=== PATIENT | male | born 1985 | race Caucasian/White ===

== ENCOUNTER 2016-06-20 07:32 | Emergency (ER) | payer SELFPAY ==
[2015-04-17 18:52] VITALS: BMI 28.2
[~2016-06-20 07:32] MED LIST: CIPRO500 MG PO; FLAGYL500 MG PO
== END 2016-06-20 08:36 | disposition home or self-care (01) ==
LOC: D.ER 07:32
DX: J06.9 Acute upper respiratory infection, unspecified (principal); F17.200 Nicotine dependence, unspecified, uncomplicated

== ENCOUNTER 2016-07-22 15:27 | Emergency (ER) | payer SELFPAY ==
[2015-04-17 18:52] VITALS: BMI 28.2
[2016-07-22 16:22] LABS: BASOPHILS 0.1 % (0-2); EOSINOPHILS 0.8 % (0-7); HEMATOCRIT 52.4 % (42.0-54.0); HEMOGLOBIN 18.3 g/dL (13.5-17.5); IMMATURE GRANULOCYTES 0.6 % (0-5); LYMPHOCYTES 9.7 % (15-50); MCH 31.5 pg (26.0-34.0); MCHC 34.9 g/dL (31.0-37.0); MCV 90.2 fL (80.0-100.0); MEAN PLATELET VOLUME 11.3 fL (7.4-10.4); MONOCYTES 7.1 % (2-11); NEUTROPHILS 81.7 % (40-80); RBC 5.81 10x6/uL (4.20-6.10); RDW 12.6 % (11.5-14.5); WBC 14.5 10x3/uL (4.8-10.8)
[2016-07-22 16:26] LABS: PLATELET COUNT 275 10x3/uL (130-400)
[2016-07-22 16:44] LABS: ALBUMIN 4.5 g/dL (3.4-5.0); ALKALINE PHOSPHATASE 95 U/L (46-116); ALT (SGPT) 37 U/L (10-68); AMYLASE - SERUM 98 U/L (25-115); BILIRUBIN - TOTAL 1.33 mg/dL (0.2-1.3); CALC OSMOLALITY 274 mosm/kg (275-300); CALCIUM 9.8 mg/dL (8.5-10.1); CARBON DIOXIDE 32.3 mmol/L (21.0-32.0); CHLORIDE - SERUM 100 mmol/L (98-107); CREATININE - SERUM 1.1 mg/dL (0.6-1.3); GLUCOSE 95 mg/dL (74-106); LIPASE 103 U/L (73-393); PROTEIN - SERUM 7.8 g/dL (6.4-8.2); SODIUM 138 mmol/L (136-145); UREA NITROGEN 9 mg/dL (7-18); eGFR NON AFRICAN AMERICAN 82 mL/min (90-120)
== END 2016-07-22 19:31 | disposition home or self-care (01) ==
LOC: D.ER 15:27
PROVIDERS: Emergency Medicine
DX: K52.9 Noninfective gastroenteritis and colitis, unspecified (principal); F17.200 Nicotine dependence, unspecified, uncomplicated; R00.0 Tachycardia, unspecified

== ENCOUNTER 2017-05-06 17:07 | Emergency (ER) | payer SELFPAY ==
[2015-04-17 18:52] VITALS: BMI 28.2
== END 2017-05-06 20:25 | disposition home or self-care (01) ==
LOC: D.ER 17:07
DX: S39.012A Strain of muscle, fascia and tendon of lower back, initial encounter (principal); W19.XXXA Unspecified fall, initial encounter; Y93.89 Activity, other specified; Y92.019 Unspecified place in single-family (private) house as the place of occurrence of the external cause; M54.5 Low back pain; M54.30 Sciatica, unspecified side; F17.200 Nicotine dependence, unspecified, uncomplicated

== ENCOUNTER 2017-06-08 12:49 | Emergency (ER) | payer SELFPAY ==
[2015-04-17 18:52] VITALS: BMI 28.2
== END 2017-06-08 15:33 | disposition home or self-care (01) ==
LOC: D.ER 12:49
DX: J20.9 Acute bronchitis, unspecified (principal); J06.9 Acute upper respiratory infection, unspecified; F17.200 Nicotine dependence, unspecified, uncomplicated

== ENCOUNTER 2017-07-09 13:53 | Emergency (ER) | payer MEDICAID ==
[2015-04-17 18:52] VITALS: BMI 28.2
[2017-07-09 14:40] LABS: BASOPHILS 0.1 % (0-2); EOSINOPHILS 0.2 % (0-7); HEMATOCRIT 51.1 % (42.0-54.0); HEMOGLOBIN 18.1 g/dL (13.5-17.5); IMMATURE GRANULOCYTES 0.6 % (0-5); MCH 31.7 pg (26.0-34.0); MCHC 35.4 g/dL (31.0-37.0); MCV 89.5 fL (80.0-100.0); MEAN PLATELET VOLUME 11.2 fL (7.4-10.4); NEUTROPHILS 85.1 % (40-80); PLATELET COUNT 241 10x3/uL (130-400); RBC 5.71 10x6/uL (4.20-6.10); RDW 12.6 % (11.5-14.5); WBC 16.3 10x3/uL (4.8-10.8)
[2017-07-09 15:02] LABS: ALBUMIN 4.8 g/dL (3.4-5.0); ALKALINE PHOSPHATASE 95 U/L (46-116); ALT (SGPT) 47 U/L (10-68); AMYLASE - SERUM 90 U/L (25-115); CALC OSMOLALITY 283 mosm/kg (275-300); CALCIUM 9.5 mg/dL (8.5-10.1); CARBON DIOXIDE 25.2 mmol/L (21.0-32.0); CHLORIDE - SERUM 106 mmol/L (98-107); CREATININE - SERUM 1.1 mg/dL (0.6-1.3); GLUCOSE 100 mg/dL (74-106); LIPASE 93 U/L (73-393); POTASSIUM - SERUM 3.7 mmol/L (3.5-5.1); PROTEIN - SERUM 8.5 g/dL (6.4-8.2); SODIUM 142 mmol/L (136-145); UREA NITROGEN 14 mg/dL (7-18); eGFR NON AFRICAN AMERICAN 82 mL/min (90-120)
== END 2017-07-09 17:00 | disposition home or self-care (01) ==
LOC: D.ER 13:53
PROVIDERS: Family Medicine
DX: K59.00 Constipation, unspecified (principal); M79.671 Pain in right foot; F17.200 Nicotine dependence, unspecified, uncomplicated

== ENCOUNTER 2018-11-11 18:00 | Emergency (ER) | payer MEDICAID ==
[~2018-11-11] VITALS: Ht 170.2 cm; Wt 77.3 kg
[2018-11-11 18:42] VITALS: Ht 170.2 cm; Wt 77.3 kg
[2018-11-11 19:09] LABS: BASOPHILS 0.1 % (0-2); EOSINOPHILS 5.9 % (0-7); HEMATOCRIT 43.6 % (42.0-54.0); HEMOGLOBIN 15.2 g/dL (13.5-17.5); IMMATURE GRANULOCYTES 0.1 % (0-5); LYMPHOCYTES 12.2 % (15-50); MCH 30.8 pg (26.0-34.0); MCHC 34.9 g/dL (31.0-37.0); MCV 88.4 fL (80.0-100.0); MEAN PLATELET VOLUME 11.2 fL (7.4-10.4); MONOCYTES 9.8 % (2-11); NEUTROPHILS 71.9 % (40-80); PLATELET COUNT 221 10x3/uL (130-400); RBC 4.93 10x6/uL (4.20-6.10); WBC 7.2 10x3/uL (4.8-10.8)
[2018-11-11 19:21] LABS: ALBUMIN 3.7 g/dL (3.4-5.0); ALKALINE PHOSPHATASE 89 U/L (46-116); ALT (SGPT) 29 U/L (10-68); BILIRUBIN - TOTAL 0.54 mg/dL (0.2-1.3); CALC OSMOLALITY 279 mosm/kg (275-300); CALCIUM 8.6 mg/dL (8.5-10.1); CARBON DIOXIDE 27.8 mmol/L (21.0-32.0); CHLORIDE - SERUM 104 mmol/L (98-107); CREATININE - SERUM 1.1 mg/dL (0.6-1.3); GLUCOSE 99 mg/dL (74-106); POTASSIUM - SERUM 3.8 mmol/L (3.5-5.1); PROTEIN - SERUM 6.7 g/dL (6.4-8.2); SODIUM 141 mmol/L (136-145); UREA NITROGEN 10 mg/dL (7-18); eGFR NON AFRICAN AMERICAN 81 mL/min (90-120)
[2018-11-11 19:23] LABS: AMYLASE - SERUM 70 U/L (25-115); LIPASE 100 U/L (73-393); TROPONIN-I < 0.017 ng/mL (0.000-0.060)
[2018-11-11] MEDS ORDERED: PROTONIX40 MG PO (21:31)
[2018-11-11] MEDS ORDERED: ZOFRAN ODT4 MG/UDTAB PO (21:31)
[2018-11-11 21:50] VITALS: BP 130/89
== END 2018-11-11 21:43 | disposition home or self-care (01) ==
LOC: D.ER 18:00
PROVIDERS: Family Medicine
DX: R10.9 Unspecified abdominal pain (principal); K29.70 Gastritis, unspecified, without bleeding